=== PATIENT | male | born 1990 | race American Indian/Alaskan Native ===

== ENCOUNTER 2016-05-11 11:11 | Emergency (ER) | payer SELFPAY ==
[2016-05-11 11:21] VITALS: BP 115/66
--- NOTE | 2016-05-11 13:45 | Emergency Department Report ---
ED Male HPI - General Chief complaint: Skin/Abscess/Foreign Body Stated complaint: BRUISE ON PRIVATE AREA Time Seen by Provider: 05/11/16 13:15 Source: patient Mode of arrival: Ambulatory Limitations: No Limitations - History of Present Illness Initial comments: 25-year-old male past medical history none presents with complaint of lesions on the underside of the penis approximately 1 week, states that they're not painful slightly uncomfortable. Denies any penile lesions or penile discharge or any testicular pain otherwise. Patient states he may have had chlamydia many years ago. States he has had 2+ sexual partners in the last 3 months without protection. Denies any significant redness or erythema to penile shaft denies any dysuria or testicular pain. Eyes any recent trauma. MD Complaint: other Onset/Timin -: week(s) Location: penis Radiation: none - Related Data Sexually active: Yes (multiple sexual partners without protection) Previous Rx's Medication Instructions Recorded Last Taken Type Acetaminophen/Codeine [Tylenol #3] 1 tab PO Q6H PRN #20 tab 05/27/15 Unknown Rx Cyclobenzaprine [Flexeril] 10 mg PO TID PRN #30 tablet 05/27/15 Unknown Rx Ibuprofen [Motrin] 600 mg PO Q8H PRN #50 tablet 05/27/15 Unknown Rx Acyclovir [Zovirax Cap] 200 mg PO 5XD #35 cap 05/11/16 Unknown Rx Allergies Allergy/AdvReac Type Severity Reaction Status Date / Time tramadol AdvReac Vomiting Verified 05/27/15 18:23 ED Review of Systems ROS: Stated complaint: BRUISE ON PRIVATE AREA Other details as noted in HPI ED Past Medical Hx - Past Medical History Previous Medical History?: No - Surgical History Past Surgical History?: Yes Hx Appendectomy: Yes - Social History Smoking Status: Current Every Day Smoker Substance Use Type: None - Medications Home Medications: Home Medications Medication Instructions Recorded Confirmed Last Taken Type Acetaminophen/Codeine [Tylenol #3] 1 tab PO Q6H PRN #20 tab 05/27/15 Unknown Rx Cyclobenzaprine [Flexeril] 10 mg PO TID PRN #30 tablet 05/27/15 Unknown Rx Ibuprofen [Motrin] 600 mg PO Q8H PRN #50 tablet 05/27/15 Unknown Rx Acyclovir [Zovirax Cap] 200 mg PO 5XD #35 cap 05/11/16 Unknown Rx ED Physical Exam - General Limitations: No Limitations General appearance: alert, in no apparent distress - Head Head exam: Present: atraumatic, normocephalic - Eye Eye exam: Present: normal appearance - ENT ENT exam: Present: mucous membranes moist - Neck Neck exam: Present: normal inspection - Respiratory Respiratory exam: Present: normal lung sounds bilaterally. Absent: respiratory distress - Cardiovascular Cardiovascular Exam: Present: regular rate, normal rhythm. Absent: systolic murmur, diastolic murmur, rubs, gallop - GI/Abdominal GI/Abdominal exam: Present: soft, normal bowel sounds - Rectal Rectal exam: Present: deferred - exam: Present: other (small patch of well-circumscribed slightly vesicular lesions middle of underPenis. Not painful, nontender to touch) - Extremities Exam Extremities exam: Present: normal inspection - Back Exam Back exam: Present: normal inspection - Neurological Exam Neurological exam: Present: alert, oriented X3 - Psychiatric Psychiatric exam: Present: normal affect, normal mood - Skin Skin exam: Present: warm, dry, intact, normal color. Absent: rash ED Course Vital Signs 05/11/16 11:15 Temperature 97.8 F Pulse Rate 74 Respiratory 16 Rate Blood Pressure 115/66 O2 Sat by Pulse 100 Oximetry ED Medical Decision Making - Medical Decision Making A/P: Genital lesions, possible herpes outbreak 1-patient has 1 small area of well-circumscribed fleshy lesions on the underside of the middle penile shaft approximately 1 cm diameter patch with small slightly vesicular lesions. No other lesions in any other part of penis and scrotum or groin region. 2-acyclovir 20 mg 5 times a day for days 3-will refer patient's primary care 4-this may also be presentation of small patch of molluscum contagiosum, I advised patient to keep track of the size and distribution of the lesions. Advised patient that if it becomes very swollen red or painful to return to the ED or primary care for reassessment Critical care attestation.: If time is entered above; I have spent that time in minutes in the direct care of this critically ill patient, excluding procedure time. ED Disposition Clinical Impression: Lesion of penis Disposition: DISCHARGED TO HOME OR SELFCARE Is pt being admited?: No Does the pt Need Aspirin: No Condition: Stable Instructions: Genital Herpes Simplex (ED) Prescriptions: Acyclovir [Zovirax Cap] 200 mg PO 5XD #35 cap Referrals: PRIMARY CARE, [Primary Care Provider] - 3-[address] [facility] [Outside] - 3-5 Days [facility] [Outside] - 3-5 Days Time of Disposition: 13:46
== END 2016-05-11 13:50 | disposition home or self-care (01) ==
LOC: ED 11:11
DX: N50.9 Disorder of male genital organs, unspecified (principal); F17.200 Nicotine dependence, unspecified, uncomplicated; Z88.8 Allergy status to other drugs, medicaments and biological substances
CPT/HCPCS: 99282

== ENCOUNTER 2018-05-13 11:29 | Emergency (ER) | payer SELFPAY ==
[2018-05-13 13:46] LABS: Mucus,Urine 3+ /HPF
[2018-05-13 13:47] LABS: Basophils % (Auto) 0.4 % (0.0-1.8); Eosinophils # (Auto) 0.3 K/mm3 (0.0-0.4); Eosinophils % (Auto) 2.9 % (0.0-4.3); Hematocrit 41.9 % (35.5-45.6); Hemoglobin 14.1 gm/dl (11.8-15.2); Lymphocytes # (Auto) 1.5 K/mm3 (1.2-5.4); Lymphocytes % (Auto) 14.6 % (13.4-35.0); Mean Corpuscular HGB Conc 34 % (32-34); Mean Corpuscular Volume 88 fl (84-94); Monocytes # (Auto) 1.1 K/mm3 (0.0-0.8); Monocytes % (Auto) 10.7 % (0.0-7.3); Platelet Count 164 K/mm3 (140-440); Red Blood Count 4.78 M/mm3 (3.65-5.03)
[2018-05-13 14:04] LABS: Alanine Aminotransferase 26 units/L (7-56); Albumin 4.4 g/dL (3.9-5); BUN/Creatinine Ratio 9; Blood Urea Nitrogen 9 mg/dL (9-20); Calcium 9.5 mg/dL (8.4-10.2); Hemolysis Index 5
[2018-05-13 14:05] LABS: Bilirubin,Urine NEG (Negative); Blood,Urine NEG (Negative); Color,Urine Yellow (Yellow); Protein,Urine <15 mg/dL mg/dL (Negative)
--- NOTE | 2018-05-13 14:13 | Emergency Department Report ---
HPI - General Chief Complaint: Back Pain/Injury Time Seen by Provider: 05/13/18 12:46 - HPI HPI: This is a 27-year-old male who presented to the ED with mother complaining of lower back pain the past couple of days. Mother did state that about 3 weeks ag o patient had cold-like symptoms which she has been treating with [id number] medications at home. Patient states that couple days ago patient is complaining of lower back pain and night sweats intermittently for the past week. Patient states that he feels low back pain, down his thighs. He denies any fevers or chills/nausea vomiting/cough/runny nose/abdominal pain or chest pain. ED Past Medical Hx - Past Medical History Previous Medical History?: No - Surgical History Past Surgical History?: Yes Hx Appendectomy: Yes - Social History Smoking Status: Never Smoker Substance Use Type: None - Medications Home Medications: Home Medications Medication Instructions Recorded Confirmed Last Taken Type Acetaminophen/Codeine [Tylenol #3] 1 tab PO Q6H PRN #20 tab 05/27/15 Unknown Rx Acyclovir [Zovirax Cap] 200 mg PO 5XD #35 cap 05/11/16 Unknown Rx Cyclobenzaprine [Flexeril 10 MG 10 mg PO TID PRN #30 tablet 05/13/18 Unknown Rx TAB] Ibuprofen [Motrin 600 MG tab] 600 mg PO Q8H PRN #50 tablet 05/13/18 Unknown Rx ED Review of Systems ROS: Stated complaint: PASSED OUT/CHEST RAPID Other details as noted in HPI Comment: All other systems reviewed and negative Physical Exam - Physical Exam Vital Signs: Vital Signs 05/13/18 11:35 Temperature 98.4 F Pulse Rate 98 H Respiratory 16 Rate Blood Pressure 120/82 O2 Sat by Pulse 98 Oximetry Physical Exam: GENERAL: Alert and oriented x3, no apparent distress, Normal Gait, atraumatic. HEAD: Head is normocephalic and a-traumatic. EYES: Pupils are equal, round, and reactive to light and accommodation. LUNGS: Symetrical with respiration, No wheezing, no rales or crackles, CTAB. HEART: S1, S2 present, regular rate and rhythm without murmur, no rubs, no gallops. Non tender to palpation ABDOMEN: No organomegaly was noted,Positive bowel sounds, soft, and non- distended. . Nontender to palpation on all Quadrants, NO CVA tenderness. BACK: Full range of motion, no spinal tenderness, nontender to palpation. EXTREMITIES/MUSCULOSKELETAL: No cyanosis, clubbing, rash, lesions or edema. Full ROM bilaterally. UE/LE Pulses 2+ bilaterally. LE and UE 5+ strength bilaterally, NEUROLOGIC: The patient is cooperative with no focal neurologic deficits. SKIN: Warm and dry, No lesions, No ulceration or induration present. ED Course Vital Signs 05/13/18 11:35 Temperature 98.4 F Pulse Rate 98 H Respiratory 16 Rate Blood Pressure 120/82 O2 Sat by Pulse 98 Oximetry ED Medical Decision Making - Lab Data Result diagrams: 05/13/18 13:21 05/13/18 13:21 - Medical Decision Making 27-year-old male presented with lower back myalgia. Urinalysis is negative slightly trees for leukocyte esterase otherwise normal Patient number to ambulate without any problems. Vital signs are normal no acute distress Discussed with patient and her mother to follow-up with his primary care physician. Critical care attestation.: If time is entered above; I have spent that time in minutes in the direct care of this critically ill patient, excluding procedure time. ED Disposition Clinical Impression: Myalgia, Low back ache Disposition: -01 TO HOME OR SELFCARE Is pt being admited?: No Does the pt Need Aspirin: No Condition: Stable Instructions: Low Back Strain (ED), Lumbar Radiculopathy (ED), Back Pain (ED) Additional Instructions: Make sure to follow up with the primary care physician as discussed. Take all your medications as you've been prescribed. If you have any worsening symptoms or develop new symptoms please return to ED immediately. Prescriptions: Cyclobenzaprine [Flexeril 10 MG TAB] 10 mg PO TID PRN #30 tablet PRN Reason: Muscle Spasm Ibuprofen [Motrin 600 MG tab] 600 mg PO Q8H PRN #50 tablet PRN Reason: Pain Referrals: LAURA STUART MD [Primary Care Provider] - 3-5 Days TRACIE WELSH MD [Referring] - 3-5 Days [facility] [Outside] - 3-5 Days [facility] [Outside] - 3-5 Days Forms: Accompanied Note, Work/School Release Form(ED) Time of Disposition: 14:54
[2018-05-13] MEDS ORDERED: DELTASONE PO ONE (14:14)
[2018-05-13] MEDS ORDERED: FLEXERIL PO ONE (14:14)
[2018-05-13] MEDS ORDERED: TORADOL IM ONE (14:14)
[2018-05-13 14:43] VITALS: BP 106/62
== END 2018-05-13 15:08 | disposition home or self-care (01) ==
LOC: ED 11:29
DX: M54.5 Low back pain (principal); M79.10 Myalgia, unspecified site; Z88.5 Allergy status to narcotic agent; Z90.49 Acquired absence of other specified parts of digestive tract
CPT/HCPCS: 36415; 80053; 81001; 85025; 96372; 99283; J1885; J7512

== ENCOUNTER 2018-07-28 09:44 | Emergency (ER) | payer SELFPAY ==
[2018-07-28] MEDS ORDERED: BENADRYL ONE (09:54)
[2018-07-28] MEDS ORDERED: SOLU-Medrol ONE (09:54)
[2018-07-28] MEDS ORDERED: ADRENALIN IV ONE (09:55)
[2018-07-28] MEDS ORDERED: NACL 0.9% 1000 ML 1,000 ML IV ONE ×3 (09:55→13:03)
[2018-07-28] MEDS ORDERED: SOLU-Medrol IV ONE (09:56)
[2018-07-28] MEDS ORDERED: BENADRYL IV ONE (09:56)
[2018-07-28] MEDS ORDERED: PEPCID IV ONE ×2 (09:56)
[2018-07-28] MEDS ORDERED: ADRENALINE P/F ONE (10:05)
--- NOTE | 2018-07-28 10:14 | Emergency Department Report ---
HPI - General Chief Complaint: Allergic Reaction Time Seen by Provider: 07/28/18 09:54 - HPI HPI: 27-year-old -[place] male presents to the emergency department with a complaint of painful swallowing, difficulty swallowing, swelling of the tongue a nd possible allergic reaction. The patient's mother says that he called her 2 days ago complaining of body aches. She says that at that time his legs were extremely tight and it made it difficult for him to stand up and walk around. She applied [place] balm. He took some Motrin that he was previously prescribed and then the swelling and throat symptoms started this morning. He otherwise has no diagnosed past medical history. No recent travel or sick contacts at home. ED Past Medical Hx - Surgical History Hx Appendectomy: Yes - Social History Smoking Status: Never Smoker Substance Use Type: None - Medications Home Medications: Home Medications Medication Instructions Recorded Confirmed Last Taken Type Acetaminophen/Codeine [Tylenol #3] 1 tab PO Q6H PRN #20 tab 05/27/15 Unknown Rx Acyclovir [Zovirax Cap] 200 mg PO 5XD #35 cap 05/11/16 Unknown Rx Cyclobenzaprine [Flexeril 10 MG 10 mg PO TID PRN #30 tablet 05/13/18 Unknown Rx TAB] Ibuprofen [Motrin 600 MG tab] 600 mg PO Q8H PRN #50 tablet 05/13/18 Unknown Rx EPINEPHrine [Epipen 2-Audie] 0.3 mg IM ONCE PRN #1 box 07/28/18 Unknown Rx Famotidine [Pepcid] 20 mg PO BID #6 tablet 07/28/18 Unknown Rx Sulfamethoxazole/Trimethoprim 1 each PO BID #14 tablet 07/28/18 Unknown Rx [Bactrim DS TAB] predniSONE [Deltasone] 20 mg PO BID #6 tab 07/28/18 Unknown Rx ED Review of Systems ROS: Stated complaint: ALLERGIC REACTION/CANT SWALLOW Other details as noted in HPI Comment: All other systems reviewed and negative Constitutional: denies: chills, fever Eyes: denies: eye pain, vision change ENT: throat pain, other (swelling of tongue). denies: ear pain Respiratory: denies: cough, shortness of breath Cardiovascular: denies: chest pain, palpitations Gastrointestinal: denies: abdominal pain, vomiting Genitourinary: denies: dysuria, discharge Musculoskeletal: myalgia. denies: joint swelling Skin: denies: rash, lesions Neurological: denies: headache, weakness Physical Exam - Physical Exam Physical Exam: GENERAL: The patient is well-developed well-nourished. HEENT: Normocephalic. Atraumatic. Patient has moist mucous membranes. EYES: Extraocular motions are intact. Pupils are equal and reactive to light bilaterally. There is bilateral tonsillar hypertrophy, erythema and bilateral exudates. Patient has slight swelling to his tongue. No drooling or trismus. NECK: Supple. Trachea is midline. CHEST/LUNGS: Clear to auscultation. There is no respiratory distress noted. HEART/CARDIOVASCULAR: Regular. There is mild tachycardia. There is no obvious murmur. ABDOMEN: Abdomen is soft, nontender. Patient has normal bowel sounds. There is no abdominal distention. SKIN: Skin is warm and dry. NEURO: The patient is awake, alert, and oriented. The patient is cooperative. The patient has no focal neurologic deficits. The patient has normal speech. MUSCULOSKELETAL: There is no tenderness or deformity. There is no evidence of acute injury. ED Medical Decision Making - Lab Data Result diagrams: 07/28/18 10:02 07/28/18 10:02 - Radiology Data Radiology results: report reviewed, image reviewed interpreted by me: X-ray of the soft tissue of the neck does not show any acute process. CT of the neck with IV contrast shows no evidence of abscess. There are mildly enlarged cervical lymph nodes that are most likely reactive. - Medical Decision Making Patient presents to the emergency department with a few days of throat pain caus ing him painful swallowing which she says is difficulty swallowing. He also complains of a possible allergic reaction with some mild swelling of his tongue and upper lip. On examination, the patient has bilateral tonsillar hypertrophy, erythema and exudates. There is some mild swelling of the tongue there are no signs of any drooling or trismus, respiratory distress. Patient was given Solu-Medrol, Pepcid, Benadryl and epinephrine. Given the presentation of the patient's tonsils, he was loaded with clindamycin. Patient was also given IV fluid resuscitation. X-ray of the soft tissue of the neck does not show any signs of epiglottitis or any other acute process. CT of the neck with IV c ontrast does not show any abscess or any other acute process. There are some mildly enlarged cervical lymph nodes. Patient's labs are mostly unremarkable except for a leukocytosis of 19,000. Patient was reevaluated multiple times of multiple hours and is feeling greatly improved. Almost immediately, the patient's tongue was back at normal size and his lip swelling decreased. Patient started complaining of some muscle spasms and he was given a dose of Flexeril and another bag of IV fluid. He was once again reevaluated and says he is feeling greatly improved. He passed an oral challenge. From his reasons, the patient appears safe for discharge home at this time. He was given a prescription for antibiotics, Pepcid, steroids and an EpiPen. He understands that if the angioedema returns or worsens, that he is to use the EpiPen and call 911. - Differential Diagnosis angioedema, anaphylaxis, strep pharyngitis, peritonsillar abscess, retropha Critical Care Time: No Critical care attestation.: If time is entered above; I have spent that time in minutes in the direct care of this critically ill patient, excluding procedure time. ED Disposition Clinical Impression: Strep pharyngitis Angioedema Qualifiers: Encounter type: initial encounter Qualified Code(s): T78.3XXA - Angioneurotic edema, initial encounter Disposition: TO HOME OR SELFCARE Is pt being admited?: No Condition: Stable Instructions: Strep Throat (ED), Angioedema (ED) Additional Instructions: Please follow up with a primary care physician in the next few days. Return to the emergency Department with any worsening of her symptoms, inability to swallow or stay hydrated, with any acute distress. You will also need to see a dentist. Take the antibiotics and other medications as prescribed. I am giving him a prescription for an EpiPen. You should use this with any signs of swelling of the tongue, throat, or signs of anaphylaxis. If you have to use the EpiPen, call 911 immediately and come into the hospital. Prescriptions: Sulfamethoxazole/Trimethoprim [Bactrim DS TAB] 1 each PO BID #14 tablet predniSONE [Deltasone] 20 mg PO BID #6 tab EPINEPHrine [Epipen 2-Audie] 0.3 mg IM ONCE PRN #1 box PRN Reason: Anaphylaxis Famotidine [Pepcid] 20 mg PO BID #6 tablet Referrals: RADHA ASCENCIO MD [Staff Physician] - 2-[address] [facility] [Outside] - 2-3 Days Time of Disposition: 12:52
[2018-07-28] MEDS ORDERED: ADRENALIN SUB-Q ONE (10:15)
[2018-07-28 10:21] LABS: Basophils % (Auto) 0.1 % (0.0-1.8); Eosinophils # (Auto) 0.5 K/mm3 (0.0-0.4); Eosinophils % (Auto) 2.6 % (0.0-4.3); Hematocrit 39.4 % (35.5-45.6); Hemoglobin 13.2 gm/dl (11.8-15.2); Lymphocytes % (Auto) 10.3 % (13.4-35.0); Mean Corpuscular HGB Conc 33 % (32-34); Mean Corpuscular Volume 89 fl (84-94); Monocytes # (Auto) 2.3 K/mm3 (0.0-0.8); Monocytes % (Auto) 11.9 % (0.0-7.3); Platelet Count 256 K/mm3 (140-440); Red Blood Count 4.45 M/mm3 (3.65-5.03); Red Cell Distribution Width 14.2 % (13.2-15.2)
[2018-07-28 10:42] LABS: BUN/Creatinine Ratio 7; Blood Urea Nitrogen 6 mg/dL (9-20); Calcium 8.8 mg/dL (8.4-10.2); Hemolysis Index 9
--- NOTE | 2018-07-28 10:57 | XRay Report ---
AP AND LATERAL SOFT TISSUES OF THE NECK: History: Throat pain. The contour of the upper airway appears within normal limits. The epiglottis is not enlarged. No prevertebral soft tissue swelling is apparent. No mass density or foreign body is evident. IMPRESSION: Normal study.
[2018-07-28] MEDS ORDERED: CLEOCIN 900 MG/50 mL 900 MG/50 ML BAG IV ONE (11:27)
--- NOTE | 2018-07-28 11:44 | Cat Scan Report ---
CT NECK WITH CONTRAST: HISTORY: Swelling of throat, throat pain. TECHNIQUE: Helical CT following IV contrast. Sagittal and coronal reformatted images. FINDINGS: The parotid and submandibular glands are normal. The carotid sheaths are intact. The thyroid gland is normal. The glottic structures are normal. The airway is patent. Strap musculature is unremarkable. Hyoid bone and thyroid cartilage are intact. Parapharyngeal and laryngeal structures are unremarkable. No abscess is visualized. There are scattered mildly enlarged bilateral jugular lymph nodes measuring up to 2 cm in greatest dimension. No necrotic lymph nodes. IMPRESSION: No evidence for abscess. Mildly enlarged bilateral cervical lymph nodes which are probably reactive in nature.
[2018-07-28] MEDS ORDERED: FLEXERIL PO ONE (13:03)
[2018-07-28 20:40] VITALS: BP 130/85
== END 2018-07-28 15:09 | disposition home or self-care (01) ==
LOC: ED 09:44
DX: T78.3XXA Angioneurotic edema, initial encounter (principal); J02.0 Streptococcal pharyngitis; Z90.89 Acquired absence of other organs; Z88.6 Allergy status to analgesic agent
CPT/HCPCS: 70360; 70491; 80048; 82550; 85025; 86308; 96365; 96372; 96375; 99285; J0171; J1200; J2930; J7030; Q9967; 36415